=== PATIENT | male | born 1980 | race African-American/Black ===

== ENCOUNTER 2023-12-02 12:04 | Emergency (ER) | payer BC, MEDICAID ==
[~2023-12-02] VITALS: Ht 175.3 cm; Wt 86.0 kg
[2023-12-02 12:05] VITALS: O2SAT 98
[2023-12-02 12:30] VITALS: BP 116/79; PULSE 82; RESP 18; TEMP 98.3
[2023-12-02] MEDS: SODIUM CHLORIDE 0.9% 1,000 ML IV ONE (12:46)
[2023-12-02 12:47] LABS: BASOPHILS % 0.8 % (0.0-2.0); EOSINOPHILS % 1.4 % (0.0-5.0); HEMATOCRIT. 49.7 % (42.0-52.0); HEMOGLOBIN. 17.1 g/dL (14.0-18.0); LYMPHOCYTES % 20.7 % (20.0-50.0); MEAN CORPUSCULAR HEMOGLOBIN 32.4 pg (28.0-32.0); MEAN CORPUSCULAR HGB CONC 34.4 g/dL (31.0-37.0); MEAN CORPUSCULAR VOLUME 94.3 fL (80.0-94.0); MEAN PLATELET VOLUME 9.5 fl (7.4-10.4); MONOCYTES % 7.5 % (2.0-8.0); NEUTROPHILS % 69.6 % (40.0-76.0); PLATELET 217 x1000/uL (130-400); RED BLOOD CELL COUNT 5.27 mill/uL (4.7-6.1); RED CELL DISTRIBUTION WIDTH 12.7 % (11.6-14.6); WHITE BLOOD COUNT 6.6 x1000/uL (4.5-11.0)
[2023-12-02 13:01] LABS: ALANINE AMINOTRANSFERASE 36 IU/L (10-49); ALBUMIN 4.8 g/dL (3.2-4.8); ASPARTATE AMINOTRANSFERASE 49 IU/L (<34); BILIRUBIN TOTAL 0.6 mg/dL (0.1-1.0); CALCIUM 9.1 mg/dL (8.7-10.4); CARBON DIOXIDE 25 mEq/L (21-32); CHLORIDE 106 mEq/L (98-107); CREATININE 1.1 mg/dL (0.6-1.3); GLUCOSE 108 mg/dL (70-105); POTASSIUM 4.8 mEq/L (3.5-5.1); PROTEIN TOTAL 7.6 g/dL (6.0-8.3); SODIUM 137 mEq/L (136-145); TROPONIN I HIGH SENSITIVITY < 4 ng/L (3.0-53); UREA NITROGEN BLOOD 11 mg/dL (9-23)
[2023-12-02] MEDS: ACETAMINOPHEN 325MG TABLET PO ONE (14:24)
[2023-12-02] MEDS: ONDANSETRON HCL 4MG/2ML INJ IV ONE (15:14)
== END 2023-12-02 15:07 | disposition home or self-care (01) ==
LOC: ER 12:04
DX: R42 Dizziness and giddiness (principal); E86.0 Dehydration
CPT/HCPCS: 99285; 96374; 71045; 96361; 80053; 85025; 84484; 36415; 93005; J2405; J7030